=== PATIENT | male | born 2000 | race Hispanic/Latino ===

== ENCOUNTER 2024-09-13 20:01 | Emergency (ER) | payer OTHER ==
[~2024-09-13] VITALS: Ht 167.6 cm; Wt 90.7 kg
--- NOTE | 2024-09-13 21:11 | ERN ---
General Chief Complaint: Cough Stated Complaint: FLY SYMPTOMS Time Seen by MD: 20:02 History of Present Illness Initial Comments Otherwise healthy 24-year-old male who presents for fever, body aches, headache, cough, mild sore throat for the last 36 hours. No medical or surgical history. Allergies: Coded Allergies: No Known Drug Allergies (Unverified Allergy, Unknown, 09/13/24) Home Meds Active Scripts Oseltamivir Phosphate (Tamiflu) 75 Mg Cap, 1 CAP PO BID for 5 Days, #10 CAP 0 Refills Prov:OMAR TABARES 09/13/24 Past Medical History Past Medical History: No Pertinent History Past Surgical History: None ROS Dictation CONSTITUTIONAL: fever HEAD/FACE: No signs of trauma. EENT: No eye pain, no blurred vision, no tearing, no double vision, no ear pain, no ear discharge, no nose pain, no nasal congestion, no throat pain, no throat swelling, no mouth pain. RESPIRATORY: cough CARDIOVASCULAR: No chest pain, no edema, no palpitations, no syncope. GASTROINTESTINAL/ABDOMINAL: No abdominal pain, no constipation, no diarrhea, no nausea, no vomiting. GENITOURINARY: No abnormal discharge, no dysuria, no frequent urination, no hematuria. No complaints of pain in the genitals. MUSCULOSKELETAL: No back pain, no gout, no joint pain, no joint swelling, no muscle pain, no muscle stiffness, no neck pain. INTEGUMENTARY: No change in color, no change in hair/nails, no dryness, no lesion, no lumps, no rash. NEUROLOGICAL/PSYCH: No anxiety, not depressed, no emotional problem, no headache, no numbness, no pre-existing deficit, no history of seizures, no tremors, no weakness. HEMATOLOGIC/LYMPHATIC: Not anemic, no history of blood clots, no apparent bleeding, no bruising, glands not swollen. All Systems Negative, Except as Noted. Physical Exam Physical Exam Dictation VITAL SIGNS: Reviewed. GENERAL APPEARANCE: Alert, oriented x3, no acute distress HEAD AND FACE: Non-traumatic. EYES: PERRL, pink conjunctivas, eyelid no trauma, anterior chamber clear. EARS: Pinnas intact and no signs of trauma or erythema. Ear canals clear and no discharge. TMs no erythema. NOSE: No discharge, no bleeding. OROPHARYNX: Mouth normal, teeth no caries, tongue pink. Pharynx clear, no erythema. Tonsils no exudates, no abscesses noted. Mucous membrane moist. NECK: Supple, non-tender, no thyromegaly, no masses, no JVD, no bruits. BREAST: Deferred. CHEST: No tenderness, no crepitus, no paradoxical movement, no retractions. LUNGS: Clear, well-ventilated, symmetric, no rales, no wheezing, no rhonchi, no stridor, course breath sounds HEART: Regular rate, regular rhythm, no murmur, no gallops. VASCULAR: No peripheral edema. ABDOMEN: Soft, positive bowel sounds, nondistended, no guarding, nontender, no rebound, no masses no hepatomegaly, no splenomegaly, no Mejia's sign, no hernias. RECTAL: Deferred. GENITAL: Deferred. NEUROLOGICAL: Normal speech, gross motor function intact, gross sensory function intact. MUSCULOSKELETAL: Neck nontender, full range of motion, back nontender, full range of motion. EXTREMITIES: Nontender, full range of motion. SKIN: Color pink, dry, no turgor, no rash, no lacerations, no abrasions, no contusions. LYMPHATICS: Deferred. Results Laboratory and Microbiology Lab and Micro Result Laboratory Tests Test 09/13/24 20:54 Influenza Type A Antigen Positive For Type A Influenza Type B Antigen Negative For Type B SARS-CoV-2 Antigen (Rapid) PRESUMPTIVE NEGATIVE MDM CC: FLS Comorbidities: none historian: patient Ddx: flu, dehydration, PNA, etc VS shows tachycardia & febrile, otherwise unremarkable CXR neg per my independent interpretation, no focal infiltrates FLU A +, consistent with symptoms Given PO ibuprofen Stable, no signs of resp distress, dehydration, etc. Will DC w/ tamiflu & supportive care. ED Course Orders Procedure Category Date Status Time Covid19 (Sars Antigen LAB 09/13/24 Complete Rapid) 20:12 Influenza Type A & B, LAB 09/13/24 Complete Rapid 20:12 Ibuprofen 800 Mg Tab PHA 09/13/24 Complete (Motrin) 21:30 Chest 1vw RAD 09/13/24 Resulted 21:10 Current Medications Medications (Trade) Dose Ordered Sig/Diana Route PRN Reason Start Time Stop Time Status Last Admin Dose Admin Ibuprofen (moTRIN) 800 mg ONCE ONCE PO 09/13/24 21:30 09/13/24 21:31 DC 09/13/24 21:13 Vital Signs Date Time Temp Pulse Resp B/P (MAP) Pulse Ox O2 Delivery O2 Flow Rate FiO2 09/13/24 20:48 102.4 109 24 145/81 97 Room Air DX & DISP Disposition: Discharge Departure Impression: Primary Impression: Influenza A Condition: Stable Scripts Oseltamivir Phosphate (Tamiflu) 75 Mg Cap 1 CAP PO BID for 5 Days, #10 CAP 0 Refills Prov: OMAR TABARES DO 09/13/24 Additional Instructions: You tested positive for influenza a, or the flu. This is causing your symptoms. Your chest x-ray is clear. The COVID and strep swabs are negative. I have prescribed Tamiflu, which is an antiviral medication used to treat the flu. Take as prescribed. I recommend he take [id number] cold and flu medications as needed for your symptoms. Drink plenty of liquids to stay hydrated. Please return to the emergency department if you have any concerning symptoms such as respiratory distress, lethargy, or dehydration. Referrals: SELF,REFERRAL (PCP) OMAR TABARES DO Sep 13, 2024 21:11
[2024-09-13] MEDS: ibuPROFEN 800 MG TAB PO ONE (21:13)
[2024-09-13 21:19] LABS: COVID19 (SARS ANTIGEN RAPID) PRESUMPTIVE NEGATIVE (NEGATIVE); INFLUENZA TYPE B Negative For Type B (NEGATIVE)
[2024-09-13 21:30] LABS: INFLUENZA TYPE A Positive For Type A (NEGATIVE)
[2024-09-13] MEDS ORDERED: OSEL75 PO (21:38)
--- NOTE | 2024-09-13 21:49 | HMCIMG ---
CHEST 1VW CLINICAL HISTORY: cough, fever, course lungs COMPARISON: None TECHNIQUE: Single view of the chest was obtained. FINDINGS: Lungs are clear. The cardiac size and mediastinum are unremarkable. The bony structures are within normal limits. IMPRESSION: No acute cardiopulmonary process identified.
[2024-09-13 22:00] VITALS: BP 141/78; PULSE 100; RESP 20; TEMP 100.4; O2SAT 99
== END 2024-09-13 22:02 | disposition home or self-care (01) ==
LOC: EDH 20:01
DX: J10.1 Influenza due to other identified influenza virus with other respiratory manifestations (principal); Z20.822 Contact with and (suspected) exposure to COVID-19; Z79.899 Other long term (current) drug therapy
CPT/HCPCS: 71045; 87426; 87804; 99284